=== PATIENT | female | born 1955 | race Caucasian/White ===

== ENCOUNTER 2017-02-02 08:18 | Day surgery (SDC) | payer MEDICARE, MEDICAID ==
[~2017-02-02 08:18] MED LIST: Bupivacaine 0.5%/EPINEPHrine 1:200,000 50 ML MDV ONE; Dextrose 5%-Lactated Ringers 1,000 ML IV SCH; Lidocaine 1% 50 ML MDV ONE
[2017-02-02] MEDS ORDERED: ceFAZolin 2 GM in Sodium Chloride 0.9% 50 ML IV ONE (09:30)
[2017-02-02] MEDS ORDERED: fentaNYL 100 MCG/2 ML SDV ONE (10:41)
[2017-02-02] MEDS ORDERED: Midazolam 1 MG/ML 2 ML SDV ONE (10:41)
[2017-02-02] MEDS ORDERED: Propofol 200 MG/20 ML SDV ONE (10:42)
[2017-02-02] MEDS ORDERED: Bacitracin Oint 1 GM U/D Packet ONE (10:59)
[2017-02-02 12:15] VITALS: BP 85/49
--- NOTE | 2017-02-05 11:25 | OR ---
DATE OF PROCEDURE: 02/02/2017 PREOPERATIVE DIAGNOSIS: Ulcerated raised skin lesion, mid scalp. POSTOPERATIVE DIAGNOSIS: Ulcerated raised skin lesion, mid scalp. OPERATIVE PROCEDURE: Excision of ulcerated raised skin lesion, mid scalp, with layered closure ([id number] verses [id number], [id number]). ANESTHESIA: Local plus IV sedation. INDICATION FOR PROCEDURE: A 61-year-old female presenting with raised ulcerated lesion in her mid parietal scalp. After preoperative evaluation and discussion, she wished to proceed with excision of this lesion. Potential risks including bleeding, infection, possible recurrence of the process were reviewed, and the patient wishes to proceed. DETAILS OF THE PROCEDURE: The patient was taken to the operating room and placed in the supine position, sitting up around 30 degrees. IV sedation was administered after which the area around the lesion was shaved and then prepped and draped. The area was then anesthetized with 1% lidocaine mixed with Marcaine, and a transversely oriented elliptical incision was made around the lesion and was carried down through the skin and subcutaneous tissue. A small amount of normal-appearing skin was maintained around the point of excision and the lesion removed intact with that small margin of normal-appearing skin. The lesion itself measured 1.1 cm and incision length was 2.3 cm. The incision was then closed with a combination of 5 and 6-0 Vicryl stitches deep and then a 5-0 Prolene stitch for the skin. Dressing was applied. The patient was taken to the recovery room in satisfactory condition. Keshav Malone MD /[id number]
== END 2017-02-02 12:30 | disposition home or self-care (01) ==
LOC: JP.SDS 08:18
PROVIDERS: ATTEND Surgery
DX: C44.41 Basal cell carcinoma of skin of scalp and neck (principal); L98.499 Non-pressure chronic ulcer of skin of other sites with unspecified severity
CPT/HCPCS: 11622; 12031; 88305; J0690; J2250; J2704; J3010; J7042; J7050

== ENCOUNTER 2022-12-26 14:06 | Inpatient (IN) | payer MEDICAID, MEDICARE ==
[2022-12-26 15:30] LABS: BASOPHILS PERCENT AUTO 0.3 % (0.1-1.3); EOSINOPHILS ABSOLUTE AUTO 0.09 K/uL (0.00-0.40); EOSINOPHILS PERCENT AUTO 1.5 % (0.0-5.4); HEMATOCRIT 50.3 % (34.3-46.0); HEMOGLOBIN 16.5 g/dL (11.2-15.5); IMMATURE GRAN ABSOLUTE AUTO 0.03 K/uL (0.00-0.23); IMMATURE GRAN PERCENT AUTO 0.5 % (0.0-0.7); LYMPHOCYTES ABSOLUTE AUTO 0.92 K/uL (0.8-3.3); LYMPHOCYTES PERCENT AUTO 14.9 % (11.4-47.7); MEAN CORPUSCULAR HEMOGLOBIN 34.2 pg (31.6-35.5); MEAN CORPUSCULAR HGB CONC 32.8 g/dL (31.6-35.5); MEAN CORPUSCULAR VOLUME 104.1 fL (81.4-99.0); MONOCYTES ABSOLUTE AUTO 0.51 K/uL (0.20-0.90); MONOCYTES PERCENT AUTO 8.3 % (3.3-12.6); NEUTROPHILS ABSOLUTE AUTO 4.61 K/uL (1.0-7.6); NEUTROPHILS PERCENT AUTO 74.5 % (40.0-78.1); PLATELET COUNT,PLT 123 K/uL (130-375); RED BLOOD CELL COUNT 4.83 M/uL (3.77-5.24); WHITE BLOOD CELL COUNT,WBC 6.2 K/uL (3.2-11.0)
[2022-12-26] MEDS ORDERED: Lactated Ringers 1,000 ML IV SCH (15:30)
[2022-12-26 15:31] LABS: BASOPHILS ABSOLUTE AUTO 0.02 K/uL (0.00-0.10)
[2022-12-26 15:31] LABS: LACTIC ACID 1.3 mmol/L (0.4-2.0)
[2022-12-26 15:56] LABS: A/G RATIO 0.6 (1.2-2.2); ALANINE AMINOTRANSFERASE,ALT 12 U/L (12-78); ALBUMIN 2.3 g/dL (3.4-5.0); ALKALINE PHOSPHATASE 57 U/L (46-116); ASPARTATE AMNIOTRANSFERASE,AST 20 U/L (15-37); BILIRUBIN TOTAL 0.5 mg/dL (0.2-1.0); BLOOD UREA NITROGEN,BUN 16 mg/dL (7-18); C-REACTIVE PROTEIN 6.97 mg/dL (0.0-0.3); CALCIUM 8.8 mg/dL (8.5-10.1); CARBON DIOXIDE,CO2 34 mmol/L (21-32); CHLORIDE,CL 92 mmol/L (100-108); CREATININE 0.4 mg/dL (0.6-1.0); EST CRCL DRUG DOSING (CG) 124.26 mL/min; ESTIMATED GFR 107 mL/min (>60); GLUCOSE RANDOM 174 mg/dL (74-106); POTASSIUM,K 5.4 mmol/L (3.6-5.2); PROTEIN TOTAL,TP 6.4 g/dL (6.4-8.2); SODIUM,NA 129 mmol/L (140-148)
[2022-12-26 15:57] LABS: ANION GAP 8.4 mmol/L (5.0-14.0)
[2022-12-26] MEDS ORDERED: cefTRIAXone 2 GM in Sodium Chloride 0.9% 100 ML IV SCH (16:00)
[2022-12-26 16:10] LABS: APPEARANCE,URINE TURBID (CLEAR); BILIRUBIN,URINE SMALL (NEGATIVE); COLOR,URINE YELLOW (YELLOW); GLUCOSE,URINE NEGATIVE (NEGATIVE); KETONES,URINE NEGATIVE (NEGATIVE); LEUKOCYTE ESTERASE,URINE LARGE (NEGATIVE); NITRITE,URINE NEGATIVE (NEGATIVE); OCCULT BLOOD,URINE MODERATE (NEGATIVE); PH,URINE 6.5 (5.0-8.0); PROTEIN,URINE 100 mg/dL (NEGATIVE)
[2022-12-26 16:19] LABS: AMORPHOUS SEDIMENT,URINE FEW; BACTERIA,URINE MANY; EPITHELIAL CELLS,URINE RARE; MUCUS,URINE NOT SEEN; RBC,URINE 0-5 (0-5); WBC,URINE PACKED (0-5)
[2022-12-26] MEDS ORDERED: Furosemide 40 MG/4 ML VIAL IVPUSH ONE (16:45)
[2022-12-26 17:11] LABS: BASE EXCESS ARTERIAL 4.1 mm/L; BICARBONATE,ARTERIAL 36.5 mmol/L (22.0-26.0); CARBOXYHEMOGLOBIN 2.6 % (0.0-1.6); METHEMOGLOBIN 0.6 %; O2 SATURATION ARTERIAL 90.4 % (95.0-98.0); OXYHEMOGLOBIN 87.5 %; PO2 ARTERIAL 77.2 mmHg (75.0-100.0); TOTAL HEMOGLOBIN 16.6 g/dL (12.0-16.0)
[2022-12-26 17:16] LABS: PCO2 ARTERIAL 93.8 mmHg (35.0-42.0)
[2022-12-26 19:52] LABS: BICARBONATE,ARTERIAL 39.5 mmol/L (22.0-26.0); CARBOXYHEMOGLOBIN 2.2 % (0.0-1.6); METHEMOGLOBIN 0.7 %; O2 SATURATION ARTERIAL 99.2 % (95.0-98.0); OXYHEMOGLOBIN 96.3 %
[2022-12-26] MEDS ORDERED: Acetaminophen 325 MG Tab PO PRN (20:57)
[2022-12-26] MEDS ORDERED: Sodium Chloride 0.9% 10 ML Syringe FLUSH PRN (20:57)
[2022-12-26] MEDS ORDERED: Ondansetron 4 MG/2 ML SDV IV PRN (20:57)
[2022-12-26 22:12] LABS: BASE EXCESS ARTERIAL 5.9 mm/L; BICARBONATE,ARTERIAL 38.5 mmol/L (22.0-26.0); CARBOXYHEMOGLOBIN 2.2 % (0.0-1.6); METHEMOGLOBIN 0.7 %; O2 SATURATION ARTERIAL 95.3 % (95.0-98.0); OXYHEMOGLOBIN 92.5 %
[2022-12-26 22:14] LABS: PCO2 ARTERIAL 95.9 mmHg (35.0-42.0)
[2022-12-26] MEDS ORDERED: Sodium Chloride 0.9% 75 ML IV ONE ×2 (23:00→23:04)
[2022-12-26] MEDS ORDERED: Iopamidol 755 Mg/ML 100 ML Bottle IV ONE ×2 (23:00→23:01)
[2022-12-26] MEDS ORDERED: Sodium Chloride 0.9% 10 ML Syringe FLUSH ONE (23:00)
[2022-12-27] MEDS: Diazepam 5 MG Tab PO SCH ×2 (00:29→22:48)
[2022-12-27] MEDS: Gabapentin 300 MG Cap PO SCH ×3 (00:29→22:47)
[2022-12-27] MEDS: tiZANidine 2 MG Tab PO SCH ×2 (00:29→22:47)
[2022-12-27] MEDS: Enoxaparin 40 MG/0.4 ML Syringe SUBCUT SCH ×2 (02:38→22:42)
[2022-12-27 05:53] LABS: BASE EXCESS ARTERIAL 9.6 mm/L; BICARBONATE,ARTERIAL 40.5 mmol/L (22.0-26.0); CARBOXYHEMOGLOBIN 2.5 % (0.0-1.6); METHEMOGLOBIN 0.7 %; O2 SATURATION ARTERIAL 80.7 % (95.0-98.0); OXYHEMOGLOBIN 78.1 %; PO2 ARTERIAL 51.7 mmHg (75.0-100.0); TOTAL HEMOGLOBIN 16.4 g/dL (12.0-16.0)
[2022-12-27 05:55] LABS: BASOPHILS PERCENT AUTO 0.3 % (0.1-1.3); EOSINOPHILS ABSOLUTE AUTO 0.09 K/uL (0.00-0.40); EOSINOPHILS PERCENT AUTO 1.5 % (0.0-5.4); IMMATURE GRAN ABSOLUTE AUTO 0.04 K/uL (0.00-0.23); IMMATURE GRAN PERCENT AUTO 0.7 % (0.0-0.7); LYMPHOCYTES ABSOLUTE AUTO 1.12 K/uL (0.8-3.3); LYMPHOCYTES PERCENT AUTO 18.7 % (11.4-47.7); MEAN CORPUSCULAR HEMOGLOBIN 34.7 pg (31.6-35.5); MEAN CORPUSCULAR HGB CONC 33.3 g/dL (31.6-35.5); MEAN CORPUSCULAR VOLUME 104.1 fL (81.4-99.0); MONOCYTES PERCENT AUTO 8.3 % (3.3-12.6); NEUTROPHILS ABSOLUTE AUTO 4.22 K/uL (1.0-7.6); NEUTROPHILS PERCENT AUTO 70.5 % (40.0-78.1); PLATELET COUNT,PLT 119 K/uL (130-375)
[2022-12-27 05:57] LABS: PCO2 ARTERIAL 85.5 mmHg (35.0-42.0)
[2022-12-27 06:07] LABS: BASOPHILS ABSOLUTE AUTO 0.02 K/uL (0.00-0.10); RED BLOOD CELL COUNT 4.61 M/uL (3.77-5.24)
[2022-12-27 06:10] LABS: A/G RATIO 0.5 (1.2-2.2); ALANINE AMINOTRANSFERASE,ALT 10 U/L (12-78); ALBUMIN 2.1 g/dL (3.4-5.0); ALKALINE PHOSPHATASE 53 U/L (46-116); ASPARTATE AMNIOTRANSFERASE,AST 19 U/L (15-37); BILIRUBIN TOTAL 0.5 mg/dL (0.2-1.0); BLOOD UREA NITROGEN,BUN 11 mg/dL (7-18); CALCIUM 9.1 mg/dL (8.5-10.1); CARBON DIOXIDE,CO2 38 mmol/L (21-32); CHLORIDE,CL 93 mmol/L (100-108); CREATININE 0.3 mg/dL (0.6-1.0); EST CRCL DRUG DOSING (CG) 166.59 mL/min; ESTIMATED GFR 115 mL/min (>60); GLUCOSE RANDOM 99 mg/dL (74-106); MAGNESIUM 1.4 mg/dL (1.8-2.4); POTASSIUM,K 4.1 mmol/L (3.6-5.2); PROTEIN TOTAL,TP 6.2 g/dL (6.4-8.2); SODIUM,NA 133 mmol/L (140-148)
[2022-12-27 06:11] LABS: ANION GAP 6.1 mmol/L (5.0-14.0)
[2022-12-27] MEDS: Baclofen 10 MG Tab PO SCH ×4 (08:15→22:48)
[2022-12-27] MEDS: Carvedilol 3.125 MG Tab PO SCH (08:23)
[2022-12-27] MEDS: guaiFENesin 600 MG Tab.ER PO SCH (08:32)
[2022-12-27] MEDS: Magnesium Sulfate/Water 2 GM in Premix Bag 1 BAG IV SCH ×3 (09:30→22:31)
[2022-12-27] MEDS: Furosemide 20 MG/2 ML VIAL IVPUSH SCH ×2 (09:40→22:42)
[2022-12-27] MEDS: Magnesium Oxide 400 MG Tab PO SCH ×2 (10:38→22:47)
[2022-12-27] MEDS: cefTRIAXone 1 GM in Sodium Chloride 0.9% 50 ML IV SCH (17:07)
[2022-12-28 05:07] LABS: BASE EXCESS ARTERIAL 13.2 mm/L; METHEMOGLOBIN 0.5 %; O2 SATURATION ARTERIAL 84.8 % (95.0-98.0); OXYHEMOGLOBIN 81.8 %; PO2 ARTERIAL 53.5 mmHg (75.0-100.0); TOTAL HEMOGLOBIN 14.6 g/dL (12.0-16.0)
[2022-12-28 05:14] LABS: BASOPHILS PERCENT AUTO 0.3 % (0.1-1.3); EOSINOPHILS ABSOLUTE AUTO 0.06 K/uL (0.00-0.40); HEMATOCRIT 43.1 % (34.3-46.0); HEMOGLOBIN 14.3 g/dL (11.2-15.5); IMMATURE GRAN ABSOLUTE AUTO 0.04 K/uL (0.00-0.23); IMMATURE GRAN PERCENT AUTO 0.7 % (0.0-0.7); LYMPHOCYTES ABSOLUTE AUTO 1.17 K/uL (0.8-3.3); LYMPHOCYTES PERCENT AUTO 19.2 % (11.4-47.7); MEAN CORPUSCULAR HEMOGLOBIN 34.5 pg (31.6-35.5); MEAN CORPUSCULAR HGB CONC 33.2 g/dL (31.6-35.5); MEAN CORPUSCULAR VOLUME 104.1 fL (81.4-99.0); MONOCYTES ABSOLUTE AUTO 0.49 K/uL (0.20-0.90); NEUTROPHILS ABSOLUTE AUTO 4.32 K/uL (1.0-7.6); NEUTROPHILS PERCENT AUTO 70.8 % (40.0-78.1); PLATELET COUNT,PLT 107 K/uL (130-375); WHITE BLOOD CELL COUNT,WBC 6.1 K/uL (3.2-11.0)
[2022-12-28 05:18] LABS: PCO2 ARTERIAL 73.9 mmHg (35.0-42.0)
[2022-12-28 05:19] LABS: BASOPHILS ABSOLUTE AUTO 0.02 K/uL (0.00-0.10); RED BLOOD CELL COUNT 4.14 M/uL (3.77-5.24)
[2022-12-28 05:21] LABS: CALCIUM 8.7 mg/dL (8.5-10.1); CREATININE 0.3 mg/dL (0.6-1.0); EST CRCL DRUG DOSING (CG) 166.59 mL/min; POTASSIUM,K 4.2 mmol/L (3.6-5.2)
[2022-12-28 05:25] LABS: ANION GAP 1.2 mmol/L (5.0-14.0)
[2022-12-28] MEDS: Baclofen 10 MG Tab PO SCH ×4 (06:16→21:40)
[2022-12-28] MEDS ORDERED: Sodium Chloride 0.9% 1,000 ML IV SCH (08:00)
[2022-12-28] MEDS: guaiFENesin 600 MG Tab.ER PO SCH (09:04)
[2022-12-28] MEDS: Carvedilol 3.125 MG Tab PO SCH (09:05)
[2022-12-28] MEDS: Magnesium Oxide 400 MG Tab PO SCH ×2 (09:06→21:39)
[2022-12-28] MEDS: Gabapentin 300 MG Cap PO SCH ×2 (09:07→21:40)
[2022-12-28] MEDS: cefTRIAXone 1 GM in Sodium Chloride 0.9% 50 ML IV SCH (18:05)
[2022-12-28] MEDS: tiZANidine 2 MG Tab PO SCH (21:39)
[2022-12-28] MEDS: Diazepam 5 MG Tab PO SCH (21:39)
[2022-12-28] MEDS: Enoxaparin 40 MG/0.4 ML Syringe SUBCUT SCH (21:44)
[2022-12-29 04:41] LABS: BASE EXCESS ARTERIAL 14.2 mm/L; BICARBONATE,ARTERIAL 42.9 mmol/L (22.0-26.0); CARBOXYHEMOGLOBIN 3.3 % (0.0-1.6); METHEMOGLOBIN 0.7 %; O2 SATURATION ARTERIAL 89.7 % (95.0-98.0); OXYHEMOGLOBIN 86.1 %; PO2 ARTERIAL 61.1 mmHg (75.0-100.0); TOTAL HEMOGLOBIN 13.9 g/dL (12.0-16.0)
[2022-12-29 04:45] LABS: PCO2 ARTERIAL 74.9 mmHg (35.0-42.0)
[2022-12-29 04:55] LABS: CALCIUM 8.6 mg/dL (8.5-10.1); CREATININE 0.3 mg/dL (0.6-1.0); EST CRCL DRUG DOSING (CG) 165.68 mL/min; POTASSIUM,K 4.4 mmol/L (3.6-5.2)
[2022-12-29 05:09] LABS: ANION GAP 0.4 mmol/L (5.0-14.0)
[2022-12-29] MEDS: Baclofen 10 MG Tab PO SCH ×4 (05:23→21:31)
[2022-12-29] MEDS: Magnesium Oxide 400 MG Tab PO SCH ×2 (09:59→20:34)
[2022-12-29] MEDS: guaiFENesin 600 MG Tab.ER PO SCH (09:59)
[2022-12-29] MEDS: Gabapentin 300 MG Cap PO SCH ×2 (10:00→21:32)
[2022-12-29] MEDS: Carvedilol 3.125 MG Tab PO SCH (10:07)
[2022-12-29] MEDS ORDERED: Morphine 10 MG/0.5 ML Oral Syringe BUCCAL STA (19:09)
[2022-12-29] MEDS: Diazepam 5 MG Tab PO SCH ×2 (20:35→22:12)
[2022-12-29] MEDS: tiZANidine 2 MG Tab PO SCH ×2 (20:35→22:12)
[2022-12-29] MEDS: Enoxaparin 40 MG/0.4 ML Syringe SUBCUT SCH (21:31)
[2022-12-29] MEDS: Cephalexin 250 MG Cap PO SCH (21:31)
[2022-12-29] MEDS: Morphine 10 MG/0.5 ML Oral Syringe PO PRN (21:40)
[2022-12-30] MEDS: Baclofen 10 MG Tab PO SCH ×4 (06:35→21:25)
[2022-12-30] MEDS: Gabapentin 300 MG Cap PO SCH ×2 (08:41→20:34)
[2022-12-30] MEDS: guaiFENesin 600 MG Tab.ER PO SCH (08:41)
[2022-12-30] MEDS: Carvedilol 3.125 MG Tab PO SCH (08:41)
[2022-12-30] MEDS: Magnesium Oxide 400 MG Tab PO SCH ×2 (08:41→20:33)
[2022-12-30] MEDS: Cephalexin 250 MG Cap PO SCH ×2 (08:42→20:32)
[2022-12-30] MEDS: Enoxaparin 40 MG/0.4 ML Syringe SUBCUT SCH (20:32)
[2022-12-30] MEDS: Diazepam 5 MG Tab PO SCH (20:32)
[2022-12-30] MEDS: Cetirizine 10 MG Tab PO SCH (20:34)
[2022-12-30] MEDS: tiZANidine 2 MG Tab PO SCH (20:34)
[2022-12-31] MEDS: Baclofen 10 MG Tab PO SCH ×4 (07:42→21:09)
[2022-12-31] MEDS: Carvedilol 3.125 MG Tab PO SCH (09:05)
[2022-12-31] MEDS: Magnesium Oxide 400 MG Tab PO SCH ×2 (09:06→21:08)
[2022-12-31] MEDS: guaiFENesin 600 MG Tab.ER PO SCH (09:06)
[2022-12-31] MEDS: Gabapentin 300 MG Cap PO SCH ×2 (09:06→21:08)
[2022-12-31] MEDS: Diazepam 5 MG Tab PO SCH (21:08)
[2022-12-31] MEDS: Cetirizine 10 MG Tab PO SCH (21:08)
[2022-12-31] MEDS: tiZANidine 2 MG Tab PO SCH (21:09)
[2023-01-01] MEDS: Baclofen 10 MG Tab PO SCH ×4 (06:03→21:11)
[2023-01-01] MEDS: guaiFENesin 600 MG Tab.ER PO SCH (09:13)
[2023-01-01] MEDS: Carvedilol 3.125 MG Tab PO SCH (09:14)
[2023-01-01] MEDS: Magnesium Oxide 400 MG Tab PO SCH ×2 (09:15→20:35)
[2023-01-01] MEDS: Gabapentin 300 MG Cap PO SCH ×2 (09:15→20:35)
[2023-01-01] MEDS ORDERED: Hypromellose 0.3% Ophth Soln 15 ML Bottle EYEBOTH PRN (09:25)
[2023-01-01] MEDS: Diazepam 5 MG Tab PO SCH (20:35)
[2023-01-01] MEDS: tiZANidine 2 MG Tab PO SCH (20:36)
[2023-01-01] MEDS: Cetirizine 10 MG Tab PO SCH (20:36)
[2023-01-02] MEDS: Baclofen 10 MG Tab PO SCH (05:53)
[2023-01-02 08:29] VITALS: BP 96/52; PULSE 77
[2023-01-02] MEDS: Morphine 10 MG/0.5 ML Oral Syringe PO PRN (09:11)
[2023-01-02] MEDS: Carvedilol 3.125 MG Tab PO SCH (09:12)
[2023-01-02] MEDS: guaiFENesin 600 MG Tab.ER PO SCH (09:13)
[2023-01-02] MEDS: Gabapentin 300 MG Cap PO SCH (09:15)
[2023-01-02] MEDS: Magnesium Oxide 400 MG Tab PO SCH (09:16)
== END 2023-01-02 09:50 | disposition hospice, home (50) | DRG 189 ==
LOC: JP.ED 14:06 → JP.ICU 19:12
PROVIDERS: ADMIT Hospitalist; ATTEND Internal Medicine
PROC: 5A09457 Assistance with Respiratory Ventilation, 24-96 Consecutive Hours, Continuous Positive Airway Pressure (ICD-10-PCS; principal; 2022-12-26)
DX: J96.21 Acute and chronic respiratory failure with hypoxia (principal); G82.50 Quadriplegia, unspecified; N30.01 Acute cystitis with hematuria; I42.9 Cardiomyopathy, unspecified; J96.22 Acute and chronic respiratory failure with hypercapnia; Z20.822 Contact with and (suspected) exposure to COVID-19; G35 Multiple sclerosis; Z66 Do not resuscitate; L89.159 Pressure ulcer of sacral region, unspecified stage; Z51.5 Encounter for palliative care; E78.00 Pure hypercholesterolemia, unspecified; L89.151 Pressure ulcer of sacral region, stage 1; Z91.040 Latex allergy status; Z88.8 Allergy status to other drugs, medicaments and biological substances; Z79.890 Hormone replacement therapy; N31.9 Neuromuscular dysfunction of bladder, unspecified; Z93.59 Other cystostomy status; Z79.899 Other long term (current) drug therapy
CPT/HCPCS: 36415; 36600; 71045; 80053; 81001; 82803; 83605; 83880; 84145; 84484; 85025; 86140; 87040 ×2; 87086; 87088; 87186; 94660; 96365; 96366; 96375; 99285; 99291; J0696; J1940; J3490; J7120; U0002; 71250; 80048; 83735; 97605; 99222; 99232; 99239; A9270-GY; J1650; J3475; J7500; Q9967